=== PATIENT | female | born 1990 | race Hispanic/Latino ===

== ENCOUNTER 2018-10-13 23:09 | Emergency (ER) | payer BC ==
[~2018-10-13] VITALS: Ht 162.6 cm; Wt 88.5 kg
--- NOTE | 2018-10-14 00:10 | NUR ---
PT TO U/S VIA WC WITH NO S/S DISTRESS NOTED
[2018-10-14 00:11] LABS: BASOPHILS % 0.1 % (0.0-1.0); EOSINOPHILS # (AUTO) 0.1 (0.0-0.4); HEMATOCRIT 39.8 % (34.2-44.1); HEMOGLOBIN 13.8 g/dL (12.0-16.0); LYMPHOCYTES # (AUTO) 2.9 (1.0-3.2); LYMPHOCYTES % 29.1 % (18.0-39.1); MEAN CORPUSCULAR HEMOGLOBIN 30.3 pg (28-32); MEAN CORPUSCULAR HGB CONC 34.7 g/dL (31-35); MEAN CORPUSCULAR VOLUME 87.3 fL (81-99); MONOCYTES # (AUTO) 0.6 (0.2-0.8); MONOCYTES % 5.6 % (4.4-11.3); NEUTROPHILS # (AUTO) 6.3 (2.1-6.9); NEUTROPHILS % 63.8 % (38.7-80.0); PLATELET COUNT 341 x10e3/uL (140-360); RED BLOOD COUNT 4.56 x10e6/uL (3.6-5.1); RED CELL DISTRIBUTION WIDTH 12.6 % (11.7-14.4)
[2018-10-14 00:31] LABS: ALANINE AMINOTRANSFERASE 13 IU/L (0-55); ALBUMIN 3.6 g/dL (3.5-5.0); ALKALINE PHOSPHATASE 76 IU/L (40-150); ANION GAP 14.8 mmol/L (8-16); BLOOD UREA NITROGEN 9 mg/dL (7-26); BUN/CREATININE RATIO 12 (6-25); CALCIUM 9.2 mg/dL (8.4-10.2); CARBON DIOXIDE 21 mmol/L (22-29); CHLORIDE 105 mmol/L (98-107); CREATININE, SERUM 0.76 mg/dL (0.57-1.11); EST GLOMERULAR FILTRATION RATE > 60 ML/MIN (60-); GLUCOSE 91 mg/dL (74-118); POTASSIUM 3.8 mmol/L (3.5-5.1); SODIUM 137 mmol/L (136-145)
--- NOTE | 2018-10-14 01:00 | NUR ---
PT RETURNED TO ED UNIT FROM U/S
[2018-10-14 01:14] LABS: HCG,QUANTITATIVE 15123.85 mIU/mL (0-10)
--- NOTE | 2018-10-14 01:44 | Diagnostic Imaging Report ---
EXAM: US OB TRANSVAG 1ST TRI SINGLE DATE: 10/14/2018 12:00 AM Time stamp on exam: 1244 hours INDICATION: Right lower quadrant pain, 9 weeks COMPARISON: None TECHNIQUE: Transvaginal sonographic images of the pelvis were obtained using lafleur scale and color doppler. Transvaginal imaging was medically necessary to better evaluate the fetus. G 2P1A 0 LMP July 26, 2018 Clinical gestational age: 11w3d FINDINGS: UTERUS: 8.2 x 5.3 x 6.5 cm, anteverted Normal appearance of the cervix. No uterine masses. GESTATIONAL SAC: Mean gestational sac diameter would correspond to an 8 week and 4 day . Moderate subchorionic hematoma YOLK SAC: Not visualized EMBRYO/FETUS: [place] rump length: 1.9 cm Estimated sonographic gestational age: 8w3d Cardiac activity: Not detected RIGHT OVARY: 2.6 x 1.9 x 1.7 cm No abnormal cysts or masses. LEFT OVARY: 2.7 x 1.8 x 3.4 cm No abnormal cysts or masses. CUL-DE-SAC: No free fluid. IMPRESSION: Findings consistent with nonviable intrauterine . Size and date discrepancy and no heart tones detected in a crown-rump length of 1.9 cm. Signed by: Dr. Lashaun Churchill M.D. on 10/14/2018 1:41 AM
[2018-10-14 02:21] LABS: BACTERIA,URINE FEW /HPF; BILIRUBIN,URINE NEGATIVE (NEGATIVE); CLARITY,URINE CLEAR (CLEAR); COLOR,URINE YELLOW (YELLOW); EPITHELIAL CELLS,URINE FEW /LPF; KETONES,URINE NEGATIVE (NEGATIVE); LEUKOCYTE ESTERASE ,URINE NEGATIVE (NEGATIVE); NITRITE,URINE NEGATIVE (NEGATIVE); PROTEIN,URINE DIPSTICK NEGATIVE (NEGATIVE); RBC,URINE 0-5 /HPF (0-5); URINE UROBILINOGEN 0.2 mg/dL (0.2 - 1); WBC,URINE (MAN) 0-5 /HPF (0-5)
== END 2018-10-14 02:43 | disposition home or self-care (01) ==
LOC: ER 23:09
DX: O03.4 Incomplete spontaneous abortion without complication (principal); R10.31 Right lower quadrant pain
CPT/HCPCS: 36415; 76817; 80053; 81001; 84702; 85025; 99283